=== PATIENT | male | born 1975 | race Caucasian/White ===

== ENCOUNTER 2017-02-13 22:46 | Emergency (ER) | payer SELFPAY ==
[~2017-02-13] VITALS: Ht 172.7 cm; Wt 85.0 kg
[2017-02-13 22:50] VITALS: BP 134/89; PULSE 89; RESP 20; TEMP 98.6; O2SAT 94
--- NOTE | 2017-02-13 22:55 | PD ---
HPI Chief Complaint: shortness of breath Time Seen by Provider: 22:51 Travel History International Travel<30 days: No Contact w/Intl Traveler<30days: No Traveled to known affect area: No History of Present Illness HPI 41-year-old male presents to the emergency department for 1 week of progressive worsening shortness of breath out of chronic respiratory medications. Patient recently moved here 4 months ago from [place]. Patient previously was a floater resident for several years however has not lived here for approximately 10 years. Patient has not yet had opportunity to establish with a new provider. In the interim patient is managed to run out of his Symbicort as well as his rescue inhaler. Patient's had no fever or chills. No productive cough of yellow-green sputum. Patient does not have any pleuritic chest pain. Patient has recurrent hospitalization the past. Patient does continue to smoke cigarettes intermittently. PFSH Past Medical History Narrative Medical asthma appendectomy tobacco use nursing notes reviewed Social History Tobacco Use: Yes Allergies-Medications (Allergen,Severity, Reaction): Coded Allergies: No Known Allergies (Unverified , 02/13/17) Reported Meds & Prescriptions Reported Meds & Active Scripts Active Symbicort Inh (Budesonide/Formoterol Fumarate) 80-4.5 Mcg/Act Aero 2 Puff INH Q12HR Prednisone 50 Mg Tab 50 Mg PO DAILY 3 Days Proair Hfa 8.5 GM Inh (Albuterol Sulfate) 90 Mcg/Act Aer 2 Puff INH Q4-6H PRN 108 mcg/actuation Narrative Medication Symbicort Review of Systems Except as stated in HPI: all other systems reviewed are Neg General / Constitutional: No: Fever, Chills HENT: No: Congestion Cardiovascular: No: Chest Pain or Discomfort Respiratory: Positive: Cough, Shortness of Breath, Wheezing Gastrointestinal: No: Nausea, Vomiting, Abdominal Pain Genitourinary: No: Flank Pain Musculoskeletal: No: Myalgias, Arthralgias Skin: No Rash Neurologic: No: Weakness Psychiatric: No: Anxiety Hematologic/Lymphatic: No: Lymph Node Enlargement Physical Exam Narrative GENERAL: Well-developed well-nourished male in moderate respiratory distress. SKIN: Warm and dry. HEAD: Normocephalic. EYES: No scleral icterus. No injection or drainage. NECK: Supple, trachea midline. No JVD or lymphadenopathy. CARDIOVASCULAR: Regular rate and rhythm without murmurs, gallops, or rubs. RESPIRATORY: Breath sounds equal bilaterally markedly diminished breath sounds bilaterally with few expiratory wheezes. No accessory muscle use. GASTROINTESTINAL: Abdomen soft, non-tender, nondistended. MUSCULOSKELETAL: No cyanosis, or edema. BACK: Nontender without obvious deformity. No CVA tenderness. Data Data Last Documented VS Vital Signs Date Time Temp Pulse Resp B/P Pulse Ox O2 Delivery O2 Flow Rate FiO2 02/14/17 00:34 76 18 97 02/14/17 00:01 136/80 Room Air 02/13/17 22:50 98.6 Orders Complete Blood Count With Diff (02/13/17 22:51) Basic Metabolic Panel (Bmp) (02/13/17 22:51) Magnesium (Mg) (02/13/17 22:51) Iv Access Insert/Monitor (02/13/17 22:51) Ecg Monitoring (02/13/17 22:51) Oximetry (02/13/17 22:51) Oxygen Administration (02/13/17 22:51) Chest, Single Ap (02/13/17 22:51) Sodium Chloride 0.9% Flush (Ns Flush) (02/13/17 23:00) Methylprednisolone So Succ Inj (Solumedr (02/13/17 23:00) Albuterol-Ipratropium Neb (Duoneb Neb) (02/13/17 23:00) Albuterol Hfa Inh (Proair Hfa Inh) (02/14/17 00:00) Resp Request For Service (02/13/17 ) Sodium Chlorid 0.9% 500 Ml Inj (Ns 500 M (02/14/17 00:00) Labs Laboratory Tests Test 02/13/17 22:55 White Blood Count 7.9 TH/MM3 Red Blood Count 5.42 MIL/MM3 Hemoglobin 15.9 GM/DL Hematocrit 48.6 % Mean Corpuscular Volume 89.7 FL Mean Corpuscular Hemoglobin 29.3 PG Mean Corpuscular Hemoglobin 32.7 % Concent Red Cell Distribution Width 12.9 % Platelet Count 219 TH/MM3 Mean Platelet Volume 9.0 FL Neutrophils (%) (Auto) 44.8 % Lymphocytes (%) (Auto) 38.5 % Monocytes (%) (Auto) 7.3 % Eosinophils (%) (Auto) 8.7 % Basophils (%) (Auto) 0.7 % Neutrophils # (Auto) 3.5 TH/MM3 Lymphocytes # (Auto) 3.0 TH/MM3 Monocytes # (Auto) 0.6 TH/MM3 Eosinophils # (Auto) 0.7 TH/MM3 Basophils # (Auto) 0.1 TH/MM3 CBC Comment DIFF FINAL Differential Comment Sodium Level 142 MEQ/L Potassium Level 4.1 MEQ/L Chloride Level 106 MEQ/L Carbon Dioxide Level 29.2 MEQ/L Anion Gap 7 MEQ/L Blood Urea Nitrogen 20 MG/DL Creatinine 1.10 MG/DL Estimat Glomerular Filtration 75 ML/MIN Rate Random Glucose 83 MG/DL Calcium Level 8.9 MG/DL Magnesium Level 2.2 MG/DL MDM Medical Decision Making Medical Screen Exam Complete: Yes Emergency Medical Condition: Yes Medical Record Reviewed: Yes Interpretation(s) Last Impressions Chest X-Ray 02/13/17 8941 Signed Impressions: Service Date/Time: Monday, February 13, 2017 23:19 - CONCLUSION: Normal examination for a patient of this age. Julio Cesar Mata MD CBC & BMP Diagram 02/13/17 22:55 Vital Signs Date Time Temp Pulse Resp B/P Pulse Ox O2 Delivery O2 Flow Rate FiO2 02/13/17 22:50 20 94 Room Air 02/13/17 22:50 89 20 94 Room Air 02/13/17 22:50 94 Room Air 02/13/17 22:50 98.6 89 20 134/89 94 Differential Diagnosis Dyspnea, exacerbation asthma, pneumothorax, bronchitis, pneumonia, CHF, PE Narrative Course Patient based on director of cardiac rehabilitation IV access obtained; patient administered Solu- Medrol 125 mg IV along with DuoNeb estefany 3; specimens collected and sent for resulting in chest x-ray ordered Patient talking with his visitor at bedside Chest x-ray no lobar infiltrate no pneumothorax no acute process; lab values found to be grossly normal range except for mild eosinophilia @ 23:35 up out of bed to the bathroom Patient reexamined lung sounds markedly improved; patient reports out of medications and does not have established primary care provider. Patient given local resources for primary care provider and refill of medications. Patient is stable for outpatient management. Diagnosis Primary Impression: Exacerbation of asthma Additional Impression: Medication refill Referrals: [facility] 1 day Primary Care Physician call for appointment Patient Instructions: General Instructions Additional Instructions: Increase fluid hydration follow-up with a primary care provider No tobacco use Use inhaler as prescribed as needed Complete course of prednisone Return to the emergency department for any concerns or change in condition Med/Other Pt SpecificInfo: Prescription(s) given Scripts Budesonide-Formoterol Inh (Symbicort Inh)80-4.5 Mcg/Act Aero2 Puff INH Q12HR # 1 INHALER Ref 0 Prov:Le Houser MD 02/13/17 Prednisone 50 Mg Tab50 Mg PO DAILY 3 Days Ref 0 Prov:Le Houser MD 02/13/17 Albuterol 8.5 GM Inh (Proair Hfa 8.5 GM Inh)90 Mcg/Act Aer2 Puff INH Q4-6H PRN ( SHORTNESS OF BREATH) #1 INHALER Ref 0 108 mcg/actuation Prov:Le Houser MD 02/13/17 Disposition: 01 DISCHARGE HOME Condition: Stable Le Houser MD Feb 13, 2017 22:54
[2017-02-13] MEDS: RESP: ALBUTEROL 2.5 MG/IPRATROPIUM 0.5 MG NEB (SCH) INH (22:56)
[2017-02-13] MEDS ORDERED: methylPREDNISolone SOD SUCC 125 MG/2 ML VIAL IVP ONE (23:00)
[2017-02-13] MEDS ORDERED: SODIUM CHLORIDE 0.9% FLUSH 10 ML FLUSH IVF PRN (23:00)
[2017-02-13 23:07] LABS: AUTOMATED NEUTROPHIL # 3.5 TH/MM3 (1.8-7.7); BASOPHIL # 0.1 TH/MM3 (0-0.2); BASOPHIL % 0.7 % (0.0-2.0); EOSINOPHIL # 0.7 TH/MM3 (0-0.4); EOSINOPHIL % 8.7 % (0.0-4.0); HEMATOCRIT 48.6 % (39.0-51.0); HEMO FLAGS DIFF FINAL; LYMPH % 38.5 % (9.0-44.0); MEAN CELL VOLUME 89.7 FL (80.0-100.0); MEAN CORPUSCULAR HEMOGLOBIN 29.3 PG (27.0-34.0); MEAN CORPUSCULAR HGB CONC 32.7 % (32.0-36.0); MONO % 7.3 % (0.0-8.0); NEUT % 44.8 % (16.0-70.0); PLATELET COUNT 219 TH/MM3 (150-450); RED BLOOD COUNT 5.42 MIL/MM3 (4.50-5.90); RED CELL DISTRIBUTION WIDTH 12.9 % (11.6-17.2); WHITE BLOOD COUNT 7.9 TH/MM3 (4.0-11.0)
[2017-02-13 23:17] LABS: POTASSIUM 4.1 MEQ/L (3.5-5.1)
[2017-02-13 23:20] LABS: BICARBONATE 29.2 MEQ/L (21.0-32.0); MAGNESIUM 2.2 MG/DL (1.5-2.5)
--- NOTE | 2017-02-13 23:29 | RADHPO ---
EXAM DATE/TIME: 02/13/2017 23:19 [facility] COMPARISON: No previous studies available for comparison. INDICATIONS : Short of breath. MEDICAL HISTORY : Asthma SURGICAL HISTORY : None. ENCOUNTER: Initial ACUITY: 1 day PAIN SCORE: 0/10 LOCATION: Bilateral chest FINDINGS: A single view of the chest demonstrates the lungs to be symmetrically aerated without evidence of mas s, infiltrate or effusion. The cardiomediastinal contours are unremarkable. Osseous structures are intact. CONCLUSION: Normal examination for a patient of this age. Julio Cesar Mata MD on February 13, 2017 at 23:27 Board Certified Radiologist. This report was verified electronically.
[2017-02-13] MEDS ORDERED: PRED50 PO (23:52)
[2017-02-13] MEDS ORDERED: SYMB80AE INH (23:52)
[2017-02-13] MEDS ORDERED: ALBUAER3 INH (23:52)
[2017-02-14] MEDS ORDERED: ALBUTEROL SULFATE 90 MCG/ACT HFA 8 GM INHALER INH ONE
[2017-02-14] MEDS ORDERED: SODIUM CHLORID 0.9% 500 ML INJ 500 ML IV ONE
[2017-02-14 00:01] VITALS: BP 136/80; PULSE 76; RESP 18; O2SAT 97
== END 2017-02-14 00:37 | disposition home or self-care (01) ==
LOC: PHED 22:46
DX: J45.901 Unspecified asthma with (acute) exacerbation (principal); Z76.0 Encounter for issue of repeat prescription; Z72.0 Tobacco use
CPT/HCPCS: 71010; 80048; 83735; 85025; 94640; 94664; 96361; 96374; 99283; J2930; J7040

== ENCOUNTER 2017-09-22 23:16 | Emergency (ER) | payer SELFPAY ==
[~2017-09-22] VITALS: Ht 175.3 cm; Wt 78.0 kg
[~2017-09-22 23:16] MED LIST: ALBUAER3 INH; PRED50 PO; SYMB80AE INH
[2017-09-22 23:17] VITALS: BP 149/75; PULSE 106; RESP 28; TEMP 98.9; O2SAT 92
[2017-09-22 23:22] VITALS: PULSE 102; RESP 25; TEMP 98.6
[2017-09-22] MEDS ORDERED: methylPREDNISolone SOD SUCC 125 MG/2 ML VIAL IV PUSH ONE (23:30)
[2017-09-22] MEDS ORDERED: SODIUM CHLORIDE 0.9% FLUSH 10 ML FLUSH IVF PRN (23:30)
[2017-09-22] MEDS: RESP: ALBUTEROL 2.5 MG/IPRATROPIUM 0.5 MG NEB (SCH) INH (23:31)
--- NOTE | 2017-09-22 23:36 | PD ---
HPI Chief Complaint: Respiratory Distress Time Seen by Provider: 23:21 Travel History International Travel<30 days: No Contact w/Intl Traveler<30days: No Traveled to known affect area: No History of Present Illness HPI 42-year-old male states that about an hour and a half ago he got short of breath. He was at work and did not have his rescue inhaler so he was driving home to get a breathing treatment when he felt too sick so he came here. He states he has history of asthma ever since he was little. He states he's never been intubated that he's been on BiPAP before. He is not wear oxygen at home. he feels worse when he moves around. He denies other modifying factors. [facility] Past Medical History Asthma: Yes Diminished Hearing: No Respiratory: Yes (ASTHMA) Past Surgical History Appendectomy: Yes Social History Alcohol Use: No Tobacco Use: Yes Substance Use: No Allergies-Medications (Allergen,Severity, Reaction): Coded Allergies: No Known Allergies (Unverified Adverse Reaction, Unknown, 09/22/17) Reported Meds & Prescriptions Reported Meds & Active Scripts Active Prednisone 50 Mg Tab 50 Mg PO DAILY 5 Days Proair Hfa 8.5 GM Inh (Albuterol Sulfate) 90 Mcg/Act Aer 2 Puff INH Q4-6H PRN 108 mcg/actuation Symbicort Inh (Budesonide/Formoterol Fumarate) 80-4.5 Mcg/Act Aero 2 Puff INH Q12HR Review of Systems Except as stated in HPI: all other systems reviewed are Neg Physical Exam Narrative GENERAL: Well-nourished, well-developed patient. SKIN: Warm and dry. HEAD: Normocephalic and atraumatic. EYES: No injection or drainage. ENT: No nasal drainage noted. NECK: Supple, trachea midline. CARDIOVASCULAR: Regular rate and rhythm RESPIRATORY: Expiratory wheezing bilaterally with decreased aeration. No accessory muscle use. Tachypnea noted GASTROINTESTINAL: Abdomen soft, non-tender, nondistended. EXTREMITIES: No edema. NEUROLOGICAL: Awake and alert. Motor and sensory grossly within normal limits. Normal speech. Data Data Last Documented VS Vital Signs Date Time Temp Pulse Resp B/P (MAP) Pulse Ox O2 Delivery O2 Flow Rate FiO2 09/23/17 02:37 09/23/17 01:33 77 16 97 Room Air 09/22/17 23:22 98.6 Orders Orders Complete Blood Count With Diff (09/22/17 23:26) Basic Metabolic Panel (Bmp) (09/22/17 23:26) Influenzae A/B Antigen (09/22/17 23:26) Iv Access Insert/Monitor (09/22/17 23:26) Ecg Monitoring (09/22/17 23:26) Oximetry (09/22/17 23:26) Chest, Single Ap (09/22/17 23:26) Sodium Chloride 0.9% Flush (Ns Flush) (09/22/17 23:30) Methylprednisolone So Succ Inj (Solumedr (09/22/17 23:30) Albuterol-Ipratropium Neb (Duoneb Neb) (09/22/17 23:30) Budeson-Formot 160-4.5 Mcg Inh (Symbicor (09/23/17 01:30) Ed Discharge Order (09/23/17 01:53) Labs Laboratory Tests Test 09/22/17 23:30 White Blood Count 6.5 TH/MM3 Red Blood Count 4.71 MIL/MM3 Hemoglobin 14.7 GM/DL Hematocrit 42.3 % Mean Corpuscular Volume 89.9 FL Mean Corpuscular Hemoglobin 31.2 PG Mean Corpuscular Hemoglobin Concent 34.7 % Red Cell Distribution Width 12.8 % Platelet Count 223 TH/MM3 Mean Platelet Volume 8.8 FL Neutrophils (%) (Auto) 43.8 % Lymphocytes (%) (Auto) 39.9 % Monocytes (%) (Auto) 8.1 % Eosinophils (%) (Auto) 7.2 % Basophils (%) (Auto) 1.0 % Neutrophils # (Auto) 2.9 TH/MM3 Lymphocytes # (Auto) 2.6 TH/MM3 Monocytes # (Auto) 0.5 TH/MM3 Eosinophils # (Auto) 0.5 TH/MM3 Basophils # (Auto) 0.1 TH/MM3 CBC Comment DIFF FINAL Differential Comment Blood Urea Nitrogen 15 MG/DL Creatinine 1.17 MG/DL Random Glucose 84 MG/DL Calcium Level 8.4 MG/DL Sodium Level 142 MEQ/L Potassium Level 3.7 MEQ/L Chloride Level 107 MEQ/L Carbon Dioxide Level 28.4 MEQ/L Anion Gap 7 MEQ/L Estimat Glomerular Filtration Rate 69 ML/MIN MDM Medical Decision Making Medical Screen Exam Complete: Yes Emergency Medical Condition: Yes Medical Record Reviewed: Yes (past history confirm, prior asthma exacerbation noted) Interpretation(s) CBC & BMP Diagram 09/22/17 23:30 Calcium Level 8.4 L Last 24 hours Impressions Chest X-Ray 09/22/17 0106 Signed Impressions: Service Date/Time: Friday, September 22, 2017 23:36 - CONCLUSION: No acute cardiopulmonary abnormality is identified. Hudson Barillas MD Differential Diagnosis Asthma exacerbation, pneumonia, URI Narrative Course Will check blood work, chest x-ray, influenza and dose with DuoNeb's and Solu- Medrol and reevaluate Labs and x-ray without emergent process, on recheck vitals improved, clear to auscultation bilaterally, patient wanting to go, patient states that symbicort controlled his symptoms significantly when he was on that. We'll give first dose here, gave refill of albuterol inhaler by a prescription and will place patient on prednisone. Patient denies any new complaints and states that they are feeling better. Patient happy with care, all questions answered. Patient knows that follow up is incumbent on them and to return to the emergency room immediately if new or worsening symptoms develop. Patient given strict return precautions, vitals reviewed and are normal, agrees to further workup as an outpatient. Diagnosis Primary Impression: Exacerbation of asthma Qualified Codes: J45.901 - Unspecified asthma with (acute) exacerbation Patient Instructions: General Instructions Additional Instructions: return as needed, follow with primary this week, albuterol every 4 hours as needed Med/Other Pt SpecificInfo: Prescription(s) given Scripts Prednisone (Prednisone) 50 Mg Tab 50 MG PO DAILY for 5 Days, #5 TAB 0 Refills Prov: Marzena Bustillo MD 09/23/17 Albuterol 8.5 GM Inh (Proair Hfa 8.5 GM Inh) 90 Mcg/Act Aer 2 PUFF INH Q4-6H Y for SHORTNESS OF BREATH, #1 INHALER 0 Refills 108 mcg/actuation Prov: Marzena Bustillo MD 09/23/17 Disposition: 01 DISCHARGE HOME Condition: Stable Marzena Bustillo MD Sep 22, 2017 23:36
--- NOTE | 2017-09-22 23:52 | RADRPT ---
EXAM DATE/TIME: 09/22/2017 23:36 [facility] COMPARISON: CHEST SINGLE AP, February 13, 2017, 23:19. INDICATIONS : Shortness of breath. MEDICAL HISTORY : Asthma Pneumothorax SURGICAL HISTORY : None. ENCOUNTER: Initial ACUITY: 1 day PAIN SCORE: 0/10 LOCATION: Bilateral chest FINDINGS: Portable AP view of the chest demonstrates a normal-sized cardiac silhouette. No effusion, consolidat ion, or pneumothorax is visualized. The bones and soft tissues demonstrate no acute abnormality. CONCLUSION: No acute cardiopulmonary abnormality is identified. Hudson Barillas MD on September 22, 2017 at 23:48 Board Certified Radiologist. This report was verified electronically.
[2017-09-22 23:56] LABS: AUTOMATED NEUTROPHIL # 2.9 TH/MM3 (1.8-7.7); BASOPHIL # 0.1 TH/MM3 (0-0.2); EOSINOPHIL # 0.5 TH/MM3 (0-0.4); EOSINOPHIL % 7.2 % (0.0-4.0); HEMATOCRIT 42.3 % (39.0-51.0); HEMO FLAGS DIFF FINAL; LYMPH % 39.9 % (9.0-44.0); LYMPHOCYTE # 2.6 TH/MM3 (1.0-4.8); MEAN CELL VOLUME 89.9 FL (80.0-100.0); MEAN CORPUSCULAR HEMOGLOBIN 31.2 PG (27.0-34.0); MEAN CORPUSCULAR HGB CONC 34.7 % (32.0-36.0); MONO % 8.1 % (0.0-8.0); NEUT % 43.8 % (16.0-70.0); PLATELET COUNT 223 TH/MM3 (150-450); RED BLOOD COUNT 4.71 MIL/MM3 (4.50-5.90); RED CELL DISTRIBUTION WIDTH 12.8 % (11.6-17.2); WHITE BLOOD COUNT 6.5 TH/MM3 (4.0-11.0)
[2017-09-23 00:13] LABS: BICARBONATE 28.4 MEQ/L (21.0-32.0); POTASSIUM 3.7 MEQ/L (3.5-5.1)
[2017-09-23 00:49] VITALS: BP 127/85; PULSE 80; RESP 19; O2SAT 96
[2017-09-23] MEDS ORDERED: BUDESONIDE-FORMOTEROL 160/4.5 MCG INHALER INH ONE (01:30)
[2017-09-23 01:33] VITALS: BP 109/82; PULSE 77; RESP 16; O2SAT 97
[2017-09-23] MEDS ORDERED: PRED50 PO (01:55)
[2017-09-23] MEDS ORDERED: ALBUAER3 INH (01:55)
== END 2017-09-23 02:38 | disposition home or self-care (01) ==
LOC: NEPC 23:16
DX: J45.901 Unspecified asthma with (acute) exacerbation (principal); J45.909 Unspecified asthma, uncomplicated; Z79.899 Other long term (current) drug therapy; Z72.0 Tobacco use
CPT/HCPCS: 71010; 80048; 85025; 87804; 94640; 94664; 96374; 99284; J2930

== ENCOUNTER 2017-11-15 16:44 | Emergency (ER) | payer BC ==
[~2017-11-15] VITALS: Ht 170.2 cm; Wt 79.1 kg
[2017-11-15 16:46] VITALS: BP 126/84; PULSE 108; RESP 18; TEMP 99.1; O2SAT 97
--- NOTE | 2017-11-15 17:28 | RADRPT ---
EXAM DATE/TIME: 11/15/2017 17:02 [facility] COMPARISON: No previous studies available for comparison. INDICATIONS : Cough, chest congestion, flu-like symptoms for 3 days MEDICAL HISTORY : Asthma. Pneumothorax SURGICAL HISTORY : None. ENCOUNTER: Initial ACUITY: 3 days PAIN SCORE: 10/10 LOCATION: Bilateral chest FINDINGS: PA and lateral views of the chest demonstrate the lungs to be symmetrically aerated without evidence of mass, infiltrate or effusion. The cardiomediastinal contours are unremarkable. Osseous structure s are intact. CONCLUSION: No acute cardiopulmonary process. Balwinder Lee MD on November 15, 2017 at 17:25 Board Certified Radiologist. This report was verified electronically.
[2017-11-15 18:06] VITALS: TEMP 99.8
[2017-11-15] MEDS ORDERED: ACETAMINOPHEN 325 MG TAB PO ONE (18:15)
[2017-11-15] MEDS ORDERED: methylPREDNISolone SOD SUCC 125 MG/2 ML VIAL IV PUSH ONE (18:15)
--- NOTE | 2017-11-15 18:16 | PD ---
HPI Chief Complaint: Cold / Flu Symptoms Time Seen by Provider: 18:06 Travel History International Travel<30 days: No Contact w/Intl Traveler<30days: No Traveled to known affect area: No History of Present Illness HPI 42yo M with PMH of asthma here with c/o sob for 2 days. Said he has been coughing and has chest pain, headache, muscle ache and nasal congestion. Has some nausea as well. Denies any abdominal pain, focal weakness or numbness. PFSH Past Medical History Asthma: Yes Diminished Hearing: No Respiratory: Yes (asthma) Past Surgical History Appendectomy: Yes Social History Alcohol Use: No (OCC) Tobacco Use: Yes Substance Use: No Allergies-Medications (Allergen,Severity, Reaction): Coded Allergies: No Known Allergies (Unverified Adverse Reaction, Unknown, 11/15/17) Reported Meds & Prescriptions Reported Meds & Active Scripts Active Tylenol (Acetaminophen) 325 Mg Tab 650 Mg PO Q6H PRN Robitussin Lingering Cold (Dextromethorphan HBr) 15 Mg Cap 30 Mg PO Q8H PRN 5 Days Proair Hfa 8.5 GM Inh (Albuterol Sulfate) 90 Mcg/Act Aer 2 Puff INH Q4-6H PRN 108 mcg/actuation Symbicort Inh (Budesonide/Formoterol Fumarate) 80-4.5 Mcg/Act Aero 2 Puff INH Q12HR Review of Systems Except as stated in HPI: all other systems reviewed are Neg Physical Exam Narrative GENERAL: 42yo M in mild distress. SKIN: Focused skin assessment warm/dry. HEAD: Atraumatic. Normocephalic. EYES: Pupils equal and round at 3mm bilaterally. EOMI. ENT: No nasal bleeding or discharge. Mucous membranes pink and moist. NECK: No nuchal rigidity. CARDIOVASCULAR: Regular rate and rhythm. No murmur appreciated. RESPIRATORY: Expiratory wheezing bilaterally. GASTROINTESTINAL: Abdomen soft, non-tender, nondistended. MUSCULOSKELETAL: No obvious deformities. No clubbing. No cyanosis. No edema. NEUROLOGICAL: Awake and alert. No obvious cranial nerve deficits. Motor grossly within normal limits. Normal speech. Data Data Last Documented VS Vital Signs Date Time Temp Pulse Resp B/P (MAP) Pulse Ox O2 Delivery O2 Flow Rate FiO2 11/15/17 21:35 103 18 100/57 (71) 100 Room Air 11/15/17 19:20 99.5 Orders Orders Chest, Pa & Lat (11/15/17 ) Influenzae A/B Antigen (11/15/17 16:51) Complete Blood Count With Diff (11/15/17 18:12) Basic Metabolic Panel (Bmp) (11/15/17 18:12) Ckmb (Isoenzyme) Profile (11/15/17 18:12) Troponin I (11/15/17 18:12) Electrocardiogram (11/15/17 18:12) Methylprednisolone So Succ Inj (Solumedr (11/15/17 18:15) Albuterol-Ipratropium Neb (Duoneb Neb) (11/15/17 18:15) Acetaminophen (Tylenol) (11/15/17 18:15) Ondansetron Inj (Zofran Inj) (11/15/17 18:30) Sodium Chlor 0.9% 1000 Ml Inj (Ns 1000 M (11/15/17 18:30) CKMB (11/15/17 18:27) CKMB% (11/15/17 18:27) Ketorolac Inj (Toradol Inj) (11/15/17 19:30) Sodium Chlor 0.9% 1000 Ml Inj (Ns 1000 M (11/15/17 21:00) Albuterol Concentrated Neb (Albuterol Co (11/15/17 21:15) Diazepam (Valium) (11/15/17 21:15) Guaifen-Cod 200-20 Mg/10ml Liq (Robituss (11/15/17 21:15) Albuterol Neb (Albuterol Neb) (11/15/17 21:45) Ed Discharge Order (11/15/17 21:57) Labs Laboratory Tests Test 11/15/17 18:27 White Blood Count 4.9 TH/MM3 Red Blood Count 4.83 MIL/MM3 Hemoglobin 15.1 GM/DL Hematocrit 42.7 % Mean Corpuscular Volume 88.5 FL Mean Corpuscular Hemoglobin 31.2 PG Mean Corpuscular Hemoglobin Concent 35.3 % Red Cell Distribution Width 13.2 % Platelet Count 162 TH/MM3 Mean Platelet Volume 8.3 FL Neutrophils (%) (Auto) 78.4 % Lymphocytes (%) (Auto) 12.1 % Monocytes (%) (Auto) 9.1 % Eosinophils (%) (Auto) 0.1 % Basophils (%) (Auto) 0.3 % Neutrophils # (Auto) 3.8 TH/MM3 Lymphocytes # (Auto) 0.6 TH/MM3 Monocytes # (Auto) 0.4 TH/MM3 Eosinophils # (Auto) 0.0 TH/MM3 Basophils # (Auto) 0.0 TH/MM3 CBC Comment DIFF FINAL Differential Comment Blood Urea Nitrogen 7 MG/DL Creatinine 0.91 MG/DL Random Glucose 88 MG/DL Calcium Level 8.9 MG/DL Sodium Level 137 MEQ/L Potassium Level 3.8 MEQ/L Chloride Level 103 MEQ/L Carbon Dioxide Level 29.3 MEQ/L Anion Gap 5 MEQ/L Estimat Glomerular Filtration Rate 92 ML/MIN Total Creatine Kinase 314 U/L Creatine Kinase MB 1.1 NG/ML Creatine Kinase MB % 0.4 % Troponin I LESS THAN 0.02 NG/ML MDM Medical Decision Making Medical Screen Exam Complete: Yes Emergency Medical Condition: Yes Interpretation(s) EKG: Sinus tachycardia at 116bpm. Normal axis. Differential Diagnosis Asthma exacerbation vs. Pneumonia vs. influenza vs. URI Narrative Course 42yo M with flu like symptoms. Wheezing on exam. Labs reviewed, no leukocytosis. Troponin negative. CPK mildly elevated at 314. Influenza negative. CXR negative. Pt given NS IVF, zofran, toradol, acetaminophen, duonebs x3, methylprednisolone. Pt reevaluated at bedside and feels a little better. Pt ate an entire tray of food and requesting gatorade. Wants something for his cough. There is still mild expiratory wheezing on left lower lung, will give another nebulizer treatment. Still with muscle aches, will give valium and another NS IVF. Pt given another nebulizer treatment and feels better. Still coughing but improved. Pt tolerating PO. Return precautions given. Diagnosis Primary Impression: Flu-like symptoms Additional Impression: Exacerbation of asthma Patient Instructions: General Instructions Departure Forms: Tests/Procedures Additional Instructions: Please follow up with your primary care physician in 2-3 days. Return to the ED if symptoms worsen. Med/Other Pt SpecificInfo: Prescription(s) given Scripts Albuterol 18 GM Inh (Ventolin Hfa 18 GM Inh) 90 Mcg/Act Aer 2 PUFF INH Q4H Y for SHORTNESS OF BREATH, #1 INHALER 0 Refills Prov: Jayne English DO 11/15/17 Prednisone (Deltasone) 20 Mg Tab 20 MG PO BID for 5 Days, #10 TAB 0 Refills Prov: Jayne English DO 11/15/17 Acetaminophen (Tylenol) 325 Mg Tab 650 MG PO Q6H Y for PAIN SCALE 1 TO 4, #20 TAB 0 Refills Prov: Jayne English DO 11/15/17 Dextromethorphan (Robitussin Lingering Cold) 15 Mg Cap 30 MG PO Q8H Y for COUGH for 5 Days, #30 CAP 0 Refills Prov: Jayne English DO 11/15/17 Disposition: 01 DISCHARGE HOME Condition: Stable Jayne English DO Nov 15, 2017 18:16
[2017-11-15] MEDS ORDERED: ONDANSETRON HCL 4 MG/2 ML VIAL IV PUSH ONE (18:30)
[2017-11-15] MEDS ORDERED: SODIUM CHLOR 0.9% 1000 ML INJ 1,000 ML IV ONE ×2 (18:30→21:00)
[2017-11-15] MEDS: RESP: ALBUTEROL 2.5 MG/IPRATROPIUM 0.5 MG NEB (SCH) INH ×2 (18:32→18:33)
[2017-11-15 18:38] LABS: AUTOMATED NEUTROPHIL # 3.8 TH/MM3 (1.8-7.7); BASOPHIL % 0.3 % (0.0-2.0); EOSINOPHIL % 0.1 % (0.0-4.0); HEMATOCRIT 42.7 % (39.0-51.0); HEMOGLOBIN 15.1 GM/DL (13.0-17.0); LYMPH % 12.1 % (9.0-44.0); LYMPHOCYTE # 0.6 TH/MM3 (1.0-4.8); MEAN CELL VOLUME 88.5 FL (80.0-100.0); MEAN CORPUSCULAR HEMOGLOBIN 31.2 PG (27.0-34.0); MEAN CORPUSCULAR HGB CONC 35.3 % (32.0-36.0); MEAN PLATELET VOLUME 8.3 FL (7.0-11.0); MONO % 9.1 % (0.0-8.0); MONOCYTE # 0.4 TH/MM3 (0-0.9); NEUT % 78.4 % (16.0-70.0); PLATELET COUNT 162 TH/MM3 (150-450); RED BLOOD COUNT 4.83 MIL/MM3 (4.50-5.90); RED CELL DISTRIBUTION WIDTH 13.2 % (11.6-17.2); WHITE BLOOD COUNT 4.9 TH/MM3 (4.0-11.0)
[2017-11-15 19:10] LABS: BICARBONATE 29.3 MEQ/L (21.0-32.0); BLOOD UREA NITROGEN 7 MG/DL (7-18); CALCIUM 8.9 MG/DL (8.5-10.1); CHLORIDE 103 MEQ/L (98-107); CREATININE 0.91 MG/DL (0.60-1.30); GLOMERULAR FILTRATION RATE 92 ML/MIN (>89); GLUCOSE,RANDOM 88 MG/DL (74-106); SODIUM (NA) 137 MEQ/L (136-145)
[2017-11-15 19:14] LABS: TROPONIN I LESS THAN 0.02 NG/ML (0.02-0.05)
[2017-11-15 19:20] VITALS: BP 107/57; PULSE 115; RESP 18; TEMP 99.5; O2SAT 98
[2017-11-15] MEDS ORDERED: KETOROLAC TROMETHAMINE 30 MG/ML (IVP) VIAL IV PUSH ONE (19:30)
[2017-11-15] MEDS ORDERED: guaiFENesin/CODEINE SYRUP 200 MG/20 MG/10 ML CUP PO ONE (21:15)
[2017-11-15] MEDS ORDERED: DIAZEPAM 5 MG TAB PO ONE (21:15)
[2017-11-15] MEDS ORDERED: RESP: ALBUTEROL CONC 2.5 MG/0.5 ML NEB NEB ONE (21:15)
[2017-11-15 21:35] VITALS: BP 100/57; PULSE 103; RESP 18; O2SAT 100
[2017-11-15] MEDS ORDERED: RESP: ALBUTEROL 2.5 MG/3 ML NEB (SCH) NEB ONE (21:45)
[2017-11-15] MEDS ORDERED: TYLE325T PO (21:54)
[2017-11-15] MEDS ORDERED: ROBICAP2 PO (21:54)
[2017-11-15] MEDS ORDERED: PRED-503 PO (22:27)
[2017-11-15] MEDS ORDERED: VENTAER INH (22:27)
[2017-11-15 22:40] VITALS: BP 97/55; PULSE 100; RESP 18; O2SAT 100
--- NOTE | 2017-11-16 00:29 | EKG ---
Date Performed: 11/15/2017 Time Performed: 19:07:49 PTAGE: 42 years EKG: SINUS TACHYCARDIA NONSPECIFIC T-WAVE ABNORMALITY ABNORMAL RHYTHM ECG NO PREVIOUS TRACING DOCTOR: Brad Rosas Interpretating Date/Time 11/16/2017 00:27:47
[2017-11-16 00:55] VITALS: RESP 18
== END 2017-11-15 23:02 | disposition home or self-care (01) ==
LOC: NEPD 16:44
DX: J45.901 Unspecified asthma with (acute) exacerbation (principal); R00.0 Tachycardia, unspecified; R11.0 Nausea; R94.31 Abnormal electrocardiogram [ECG] [EKG]; Z72.0 Tobacco use
CPT/HCPCS: 71046; 80048; 82550; 82552; 84484; 85025; 87804; 93005; 94640; 94664; 96361; 96374; 96375; 99285; J1885; J2405; J2930; J7030; J7613

== ENCOUNTER 2018-04-15 12:42 | Emergency (ER) | payer BC ==
[~2018-04-15] VITALS: Ht 175.3 cm; Wt 84.2 kg
[~2018-04-15 12:42] MED LIST changes: +PRED-503 PO; -PRED50 PO; +ROBICAP2 PO; +TYLE325T PO; +VENTAER INH
[2018-04-15 12:50] VITALS: BP 127/80; PULSE 95; RESP 16; TEMP 98.1; O2SAT 98
[2018-04-15] MEDS ORDERED: KETOROLAC TROMETHAMINE 60 MG/2 ML (IM) VIAL IM ONE (13:30)
[2018-04-15] MEDS ORDERED: ORPHENADRINE INJ 60 MG/2 ML AMP IM ONE (13:30)
--- NOTE | 2018-04-15 13:34 | PD ---
HPI Chief Complaint: Musculoskeletal Complaint Time Seen by Provider: 12:57 Travel History International Travel<30 days: No Contact w/Intl Traveler<30days: No Traveled to known affect area: No History of Present Illness HPI 43 YO M presents to the ED for evaluation of 5 day history of right neck pain. Onset after waking 5 days ago. Pain is rated 10/10, spasming in quality. Worsened by motion, coughing. No alleviating factors reported. Patient denies acute injury. He endorses intermittent dull headaches associated with the pain. He endorses dizziness with standing. He denies fever, chills, nausea, vomiting, cold or flu symptoms. He denies numbness, tingling, weakness, limitations to range of motion of the extremities. He states that he had a similar episode for 5 years ago. Patient has been treating at home with ibuprofen and warm compresses. Last medicine was last night. PFSH Past Medical History Asthma: Yes Diminished Hearing: No Respiratory: Yes (asthma) Tetanus Vaccination: > 5 Years Influenza Vaccination: No Past Surgical History Appendectomy: Yes Social History Alcohol Use: No (OCC) Tobacco Use: No Substance Use: No Allergies-Medications (Allergen,Severity, Reaction): Coded Allergies: No Known Allergies (Unverified Adverse Reaction, Unknown, 04/15/18) Reported Meds & Prescriptions Reported Meds & Active Scripts Active Flexeril (Cyclobenzaprine HCl) 10 Mg Tab 10 Mg PO TID Ibuprofen 800 Mg Tab 800 Mg PO Q8H Proair Hfa 8.5 GM Inh (Albuterol Sulfate) 90 Mcg/Act Aer 2 Puff INH Q4-6H PRN 108 mcg/actuation Symbicort Inh (Budesonide/Formoterol Fumarate) 80-4.5 Mcg/Act Aero 2 Puff INH Q12HR Review of Systems Except as stated in HPI: all other systems reviewed are Neg Physical Exam Narrative GENERAL: Well-nourished, well-developed white male no acute distress. SKIN: Focused skin assessment warm/dry. HEAD: Normocephalic. EYES: No scleral icterus. No injection or drainage. ENT: Pearly lama tympanic membranes bilaterally. Oropharynx without erythema, edema, exudate. Uvula midline. Airway patent. Tongue piercing present. NECK: Supple, trachea midline. No JVD or lymphadenopathy. Tender to palpation of the SCM on the right side. No midline tenderness to palpation. Range of motion deferred secondary to patient's pain. Negative Brudzinski sign CARDIOVASCULAR: Regular rate and rhythm without murmurs, gallops, or rubs. RESPIRATORY: Breath sounds equal bilaterally. No accessory muscle use. GASTROINTESTINAL: Abdomen soft, non-tender, nondistended. MUSCULOSKELETAL: No cyanosis, or edema. BACK: Nontender without obvious deformity. No CVA tenderness. Data Data Last Documented VS Vital Signs Date Time Temp Pulse Resp B/P (MAP) Pulse Ox O2 Delivery O2 Flow Rate FiO2 04/15/18 12:50 98.1 95 16 127/80 (96) 98 Orders Orders Ketorolac Inj (Toradol Inj) (04/15/18 13:30) Orphenadrine Inj (Norflex Inj) (04/15/18 13:30) Basic Metabolic Panel (Bmp) (04/15/18 15:02) Complete Blood Count With Diff (04/15/18 15:02) Iv Access Insert/Monitor (04/15/18 15:02) Blood Culture (04/15/18 15:02) Ct Cerv Spine W/O Contrast (04/15/18 15:02) Ed Discharge Order (04/15/18 16:32) Labs Laboratory Tests Test 04/15/18 15:10 White Blood Count 7.6 TH/MM3 Red Blood Count 4.74 MIL/MM3 Hemoglobin 14.4 GM/DL Hematocrit 43.0 % Mean Corpuscular Volume 90.8 FL Mean Corpuscular Hemoglobin 30.3 PG Mean Corpuscular Hemoglobin Concent 33.4 % Red Cell Distribution Width 12.0 % Platelet Count 201 TH/MM3 Mean Platelet Volume 8.8 FL Neutrophils (%) (Auto) 65.4 % Lymphocytes (%) (Auto) 23.3 % Monocytes (%) (Auto) 7.6 % Eosinophils (%) (Auto) 3.0 % Basophils (%) (Auto) 0.7 % Neutrophils # (Auto) 4.9 TH/MM3 Lymphocytes # (Auto) 1.8 TH/MM3 Monocytes # (Auto) 0.6 TH/MM3 Eosinophils # (Auto) 0.2 TH/MM3 Basophils # (Auto) 0.1 TH/MM3 CBC Comment DIFF FINAL Differential Comment Blood Urea Nitrogen 13 MG/DL Creatinine 0.92 MG/DL Random Glucose 84 MG/DL Calcium Level 8.8 MG/DL Sodium Level 140 MEQ/L Potassium Level 3.9 MEQ/L Chloride Level 106 MEQ/L Carbon Dioxide Level 27.8 MEQ/L Anion Gap 6 MEQ/L Estimat Glomerular Filtration Rate 91 ML/MIN [facility] Medical Decision Making Medical Screen Exam Complete: Yes Emergency Medical Condition: Yes Differential Diagnosis Spasm versus musculoskeletal pain versus radiculopathy versus less likely meningitis versus other Narrative Course 43 YO M presents to the ED for evaluation of 5 day history of right neck pain. Onset after waking 5 days ago. Pain is rated 10/10, spasming in quality. Worsened by motion, coughing. He denies fever, chills, nausea, vomiting, cold or flu symptoms. No red flag symptoms. Afebrile on presentation. Tender to palpation of the SCM on the right. Patient was administered IM Toradol and Norflex. On recheck he reports improvement of his symptoms. Attempted to test range of motion. Patient resistant R OM testing. Brudzinski is negative. Given the limited neck exam I checked basic labs. These were unremarkable. CT reveals no acute findings. Patient requesting food on recheck. He is prescribed a short course of anti-inflammatories and muscle relaxants. He is instructed to follow-up with the primary care provider. We discussed reasons to return to the ED. He is stable discharged home. Diagnosis Primary Impression: Musculoskeletal neck pain Referrals: Primary Care Physician Additional Instructions: Rest, hydrate. Return to normal, gentle activities as tolerated. Take anti-inflammatories and muscle relaxants as prescribed. Do not drive while taking muscle relaxants that they may cause drowsiness. Warm, moist compresses applied to areas of pain may also help to improve your symptoms. Follow-up with the primary care provider. Return to the ED for worsening symptoms or any urgent or emergent medical condition. Med/Other Pt SpecificInfo: Prescription(s) given Scripts Cyclobenzaprine (Flexeril) 10 Mg Tab 10 MG PO TID for Muscle Spasm, #15 TAB 0 Refills Prov: Jayne English DO 04/15/18 Ibuprofen (Ibuprofen) 800 Mg Tab 800 MG PO Q8H, #15 TAB 0 Refills Prov: Jayne English DO 04/15/18 Disposition: 01 DISCHARGE HOME Condition: Stable Tanisha Carver Apr 15, 2018 13:34
[2018-04-15 15:23] LABS: AUTOMATED NEUTROPHIL # 4.9 TH/MM3 (1.8-7.7); BASOPHIL # 0.1 TH/MM3 (0-0.2); BASOPHIL % 0.7 % (0.0-2.0); EOSINOPHIL # 0.2 TH/MM3 (0-0.4); HEMOGLOBIN 14.4 GM/DL (13.0-17.0); LYMPH % 23.3 % (9.0-44.0); LYMPHOCYTE # 1.8 TH/MM3 (1.0-4.8); MEAN CELL VOLUME 90.8 FL (80.0-100.0); MEAN CORPUSCULAR HEMOGLOBIN 30.3 PG (27.0-34.0); MEAN CORPUSCULAR HGB CONC 33.4 % (32.0-36.0); MEAN PLATELET VOLUME 8.8 FL (7.0-11.0); MONO % 7.6 % (0.0-8.0); MONOCYTE # 0.6 TH/MM3 (0-0.9); NEUT % 65.4 % (16.0-70.0); PLATELET COUNT 201 TH/MM3 (150-450); RED BLOOD COUNT 4.74 MIL/MM3 (4.50-5.90); WHITE BLOOD COUNT 7.6 TH/MM3 (4.0-11.0)
[2018-04-15 15:36] LABS: BICARBONATE 27.8 MEQ/L (21.0-32.0); CALCIUM 8.8 MG/DL (8.5-10.1)
[2018-04-15 15:40] LABS: CREATININE 0.92 MG/DL (0.60-1.30)
[2018-04-15] MEDS ORDERED: IBUP1TAB7 PO (16:05)
[2018-04-15] MEDS ORDERED: CYCL10TA PO (16:05)
--- NOTE | 2018-04-15 16:29 | RADRPT ---
EXAM DATE: 04/15/2018 4:12 PM EDT AGE/SEX: 43 years / Male INDICATIONS: Neck pain. No injury. CLINICAL DATA: This is the patient's initial encounter. Patient reports that signs and symptoms have been present for 4 - 6 days and indicates a pain score of 8/10. MEDICAL/SURGICAL HISTORY: None. Appendectomy. RADIATION DOSE: 26.24 CTDI (mGy) COMPARISON: No prior exams available for comparison. TECHNIQUE: Contiguous axial images were obtained using helical multirow detector technique. The vol umetric data was post-processed with multiplanar reconstruction in oblique axial, sagittal, and coron al planes. Using automated exposure control and adjustment of the mA and/or kV according to patient s ize, radiation dose was kept as low as reasonably achievable to obtain optimal diagnostic quality consuleo ges. DICOM format image data is available electronically for review and comparison. FINDINGS: No acute fracture or spondylolisthesis. No prevertebral soft tissue swelling. No canal or foraminal s tenosis. CONCLUSION: 1. No acute findings. Electronically signed by: Adilson Quintero MD 04/15/2018 4:28 PM EDT
== END 2018-04-15 16:44 | disposition home or self-care (01) ==
LOC: PHEFT 12:42
DX: M54.2 Cervicalgia (principal); R51 Headache; R42 Dizziness and giddiness; J45.909 Unspecified asthma, uncomplicated
CPT/HCPCS: 72125; 80048; 85025; 87040; 96372; 99284; J1885; J2360